=== PATIENT | male | born 2000 ===

== ENCOUNTER 2021-04-16 00:02 | Emergency (ER) | payer SELFPAY ==
[2021-04-16] MEDS ORDERED: diphenhydrAMINE 50 MG/ML VIAL IV ONE (00:42)
[2021-04-16] MEDS ORDERED: FAMOTIDINE 20 MG/2 ML INJ IV ONE (00:42)
[2021-04-16] MEDS ORDERED: methylPREDNISolone Sod Succinate 125 MG/2 ML INJ IV ONE (00:42)
[2021-04-16] MEDS ORDERED: SODIUM CHLORIDE 0.9% 1000 ML 1,000 ML IV ONE (00:42)
--- NOTE | 2021-04-16 00:46 | Emergency Department Report ---
ED Allergic Reaction HPI - General Chief complaint: Allergic Reaction Stated complaint: ALLERGIC REACTION/RASH Time Seen by Provider: 04/16/21 00:41 Source: patient Mode of arrival: Ambulatory Limitations: No Limitations - History of Present Illness Initial Comments: Patient is 20 years old male with no significant past medical history. Patient presented to the ER complaining of allergic reaction secondary to insect bite. Patient stated that he is feeling that his throat is closing on him. He also having a diffuse skin rash with itching. Patient denied any difficulty swallowing. I immediately examined his oropharyngeal using an otoscope however patient has a midline uvula with no swelling. Patient given Benadryl, Solu-Medrol and Pepcid and normal saline. I will closely monitor the patient. MD Complaint: allergic reaction, hives -: Sudden Exposure: insect bite Symptoms: rash, itching Severity: moderate Treatment Prior to Arrival: none Previous Allergy History: none - Related Data Allergies Allergy/AdvReac Type Severity Reaction Status Date / Time No Known Allergies Allergy Unverified 04/16/21 00:37 ED Review of Systems ROS: Stated complaint: ALLERGIC REACTION/RASH Other details as noted in HPI Comment: All other systems reviewed and negative Constitutional: denies: chills, fever Respiratory: denies: cough, shortness of breath Cardiovascular: denies: chest pain, palpitations Gastrointestinal: denies: abdominal pain, nausea, vomiting ED Past Medical Hx - Past Medical History Previous Medical History?: No - Surgical History Past Surgical History?: No - Social History Smoking Status: Never Smoker Substance Use Type: None ED Physical Exam - General Limitations: No Limitations General appearance: alert, in no apparent distress - Head Head exam: Present: atraumatic, normocephalic, normal inspection - Eye Eye exam: Present: normal appearance, PERRL - ENT ENT exam: Present: normal exam, normal orophraynx, mucous membranes moist - Neck Neck exam: Present: normal inspection, full ROM. Absent: tenderness, meningismus - Respiratory Respiratory exam: Present: normal lung sounds bilaterally. Absent: respiratory distress, wheezes, rales, rhonchi - Cardiovascular Cardiovascular Exam: Present: regular rate, normal rhythm, normal heart sounds - GI/Abdominal GI/Abdominal exam: Present: soft, normal bowel sounds. Absent: distended, tenderness, guarding, rebound, rigid, organomegaly, mass, bruit, pulsatile mass, hernia - Extremities Exam Extremities exam: Present: normal inspection, full ROM, normal capillary refill. Absent: tenderness - Back Exam Back exam: Present: normal inspection, full ROM. Absent: CVA tenderness (R), CVA tenderness (L) - Neurological Exam Neurological exam: Present: alert, oriented X3, CN II-XII intact - Psychiatric Psychiatric exam: Present: normal mood - Skin Skin exam: Present: warm, intact, normal color ED Course Vital Signs 04/16/21 04/16/21 00:30 00:52 Temperature 98.3 F Pulse Rate 74 Respiratory 18 18 Rate Blood Pressure 116/67 O2 Sat by Pulse 96 99 Oximetry ED Medical Decision Making - Medical Decision Making Patient is 20 years old male with no significant past medical history. Patient presented to the ER complaining of allergic reaction secondary to insect bite. Patient stated that he is feeling that his throat is closing on him. He also having a diffuse skin rash with itching. Patient denied any difficulty swallowing. I immediately examined his oropharyngeal using an otoscope however patient has a midline uvula with no swelling. Patient given Benadryl, Solu-Medrol and Pepcid and normal saline. I will closely monitor the patient. Patient stated that he is feeling much better. Patient observed in the ER for approximately 5 hours. Patient stated that he does not have any difficulty swallowing or difficulty breathing. Patient advised to follow-up with his primary care physician in the next 2 to 3 days and to return to the ER if he develop any new symptoms. Critical care attestation.: If time is entered above; I have spent that time in minutes in the direct care of this critically ill patient, excluding procedure time. ED Disposition Clinical Impression: Allergic reaction Disposition: DC-01 TO HOME OR SELFCARE Is pt being admited?: No Condition: Stable Instructions: Allergies, Adult, [id number] Referrals: [facility] [Provider Group] - 3-5 Days
[2021-04-16 05:18] VITALS: BP 111/74
== END 2021-04-16 04:31 | disposition home or self-care (01) ==
LOC: ED 00:02
DX: T78.40XA Allergy, unspecified, initial encounter (principal); Z79.899 Other long term (current) drug therapy; X58.XXXA Exposure to other specified factors, initial encounter
CPT/HCPCS: 96361; 96374; 96375; 99282; J1200; J2930; J7030